=== PATIENT | male | born 1960 | race Caucasian/White ===

== ENCOUNTER 2017-01-29 09:30 | Emergency (ER) | payer OTHER ==
[~2017-01-29] VITALS: Ht 180.3 cm; Wt 81.8 kg
[2017-01-29] MEDS ORDERED: HALOPERIDOL 5 MG INJ IM STA (09:33)
[2017-01-29 09:44] VITALS: Ht 180.3 cm; Wt 81.8 kg
[2017-01-29 09:56] LABS: ADD SCAN DIFF NO
[2017-01-29] MEDS ORDERED: SOD CHLORIDE 0.9% 1,000 ML IV STA (09:56)
[2017-01-29] MEDS ORDERED: LORAZEPAM 2 MG INJ IM ONE (10:00)
[2017-01-29] MEDS ORDERED: DIPHENHYDRAMINE 50 MG INJ IM ONE (10:00)
[2017-01-29 10:05] LABS: BASOPHILS % 0.2 % (0.0-2.0); EOSINOPHILS # 0.2 10^3/ul (0.0-0.5); EOSINOPHILS % 1.4 % (0.0-7.0); HEMATOCRIT 39.9 % (42.0-52.0); HEMOGLOBIN 13.3 g/dl (14.0-18.0); LYMPHOCYTES # 2.4 10^3/ul (0.8-2.9); LYMPHOCYTES % 14.7 % (15.0-51.0); MEAN CORPUSCULAR HGB CONC 33.3 g/dl (32.0-37.0); MEAN PLATELET VOLUME 11.5 fl (7.4-10.4); MONOCYTE # 0.8 10^3/ul (0.3-0.9); MONOCYTES % 5.1 % (0.0-11.0); NEUTROPHIL # 12.5 10^3/ul (1.6-7.5); NEUTROPHILS % 78.2 % (39.0-77.0); PLATELET COUNT 253 10^3/UL (140-415); RED BLOOD COUNT 4.75 10^6/ul (4.70-6.10); RED CELL DISTRIBUTION WIDTH 13.7 % (11.5-14.5)
[2017-01-29 10:11] LABS: ALBUMIN 4.6 g/dl (3.3-4.9)
[2017-01-29 10:12] LABS: CHLORIDE 108 mmol/L (97-110); POTASSIUM 3.3 mmol/L (3.5-5.1); SODIUM 147 mmol/L (135-144)
[2017-01-29 10:13] LABS: INR 1.06; PARTIAL THROMBOPLASTIN TIME 27.4 Sec (25.0-35.0); PROTIME 13.8 Sec (12.2-14.2); PT RATIO 1.1
[2017-01-29 10:14] LABS: ANION GAP 20 (8-16); ASPARTATE AMINO TRANSFERASE 21 IU/L (15-46); BILIRUBIN,INDIRECT 0.4 mg/dl (0-1.1); BILIRUBIN,TOTAL 0.4 mg/dl (0.2-1.3); CARBON DIOXIDE 22 mmol/L (21-31); CREATININE 0.76 mg/dl (0.61-1.24)
[2017-01-29 10:15] LABS: ALANINE AMINOTRANSFERASE 27 IU/L (13-69); ALBUMIN/GLOBULIN RATIO 1.17; ALKALINE PHOSPHATASE 92 IU/L (42-121); BLOOD UREA NITROGEN 26 mg/dl (7-20); CALCIUM 9.7 mg/dl (8.4-10.2); TOTAL PROTEIN 8.5 g/dl (6.1-8.1)
--- NOTE | 2017-01-29 10:15 | ERA ---
ER Documentation Chief Complaint Date/Time DATE: 01/29/17 TIME: 10:11 Chief Complaint BROUGHT IN VIA EMS WITH [employer] ESCORT DUE TO AGITATION (BREANNA MATTHEWS) HPI This is a 56-year-old male with a known history of paranoid schizophrenia, bipolar disorder and multiple personality disorder. The patient indicated he utilize crystal meth prior to arrival and was stating that he was experiencing severe agitation. The patient was experienced and bizarre-like behavior outside his apartment complex building and witnesses phone 911. [employer] arrived and the patient is not under custody. There is no signs of trauma or drug paraphernalia. The patient indicates he has not taken any of his antipsychotic medications for over 2 weeks. He denies any suicidal homicidal thoughts or ideations at this time. He denies any chest pain or pressure that radiates to the neck arm back or jaw. He denies any recent remote blunt or penetrating head chest or abdominal trauma (BREANNA MATTHEWS) ROS All systems reviewed and are negative except as per history of present illness. (BREANNA MATTHEWS) Allergies Allergies: Coded Allergies: No Known Allergies (Verified Allergy, Mild, 01/29/17) PMhx/Soc History of Surgery: No Anesthesia Reaction: No Hx Neurological Disorder: No Hx Respiratory Disorders: No Hx Cardiac Disorders: No Hx Psychiatric Problems: Yes Hx Miscellaneous Medical Probl: Yes (DM) Hx Alcohol Use: Yes Hx Tobacco Use: Yes Smoking Status: Current every day smoker (BREANNA MATTHEWS) Physical Exam Vitals Vital Signs Date Time Temp Pulse Resp B/P Pulse Ox O2 Delivery O2 Flow Rate FiO2 01/29/17 17:58 67 19 132/65 100 Room Air 01/29/17 15:21 75 19 132/74 100 Room Air 01/29/17 12:00 88 19 120/76 100 Room Air 01/29/17 10:00 86 19 117/77 100 Room Air 01/29/17 09:44 98.2 118 18 148/86 98 (JOEL LOCK DO) Physical Exam Constitutional:Well-developed. Disheveled brought in by [employer] and EMS very agitated. HEENT:Normocephalic. Atraumatic.Pupils were 5 mm and reactive to light bilaterally peer moist mucous membranes.No tonsillar exudates. Neck: No nuchal rigidity. No lymphadenopathy. No posterior cervical spine tenderness or step-offs. Respiratory: Not using accessory muscles of respiration.Lungs were clear to auscultation bilaterally. No rhonchi. No rales. No wheezing. Cardiovascular: Regular rate regular rhythm.No murmurs. No rubs were appreciated.S1, S2 normal. Distal pulses are palpable 2+ bilaterally. GI: Abdomen was soft. Nontender. Non Distended. No pulsatile abdominal masses or bruits. No rebound. No guarding. Bowel sounds were present and normal. : Normal light of both testicles. No testicular swelling or tenderness. Patient was straight cathed in order to receive urine Muscle skeletal: Full range of motion of both the upper and lower extremities bilaterally.Normal muscle tone.No assymetrical calf tenderness or swelling. Skin: No petechia, no purpura. No lesions on the palms or the soles of the feet. No maculopapular rash. NEURO: Patient was alert, awake, orientated to person place but not to time. Patient refused to follow verbal commands as he was very agitated experiencing auditory visual tactile hallucinations. He denied any suicidal or homicidal suicidal thoughts or ideation (BREANNA MATTHEWS) Result Diagram: 01/29/17 0945 01/29/17 0945 Results 24 hrs Laboratory Tests Test 01/29/17 09:33 01/29/17 09:45 01/29/17 10:00 Urine Amphetamines Screen POSITIVE Urine Barbiturates Negative Urine Benzodiazepines Screen Negative Urine Cannabinoids Positive Urine Cocaine Screen Negative Urine Opiates Screen Negative Acetaminophen Level < 10.0ug/ml Activated Partial Thromboplast Time 27.4Sec Alanine Aminotransferase (ALT/SGPT) 27IU/L Albumin 4.6g/dl Albumin/Globulin Ratio 1.17 Alkaline Phosphatase 92IU/L Anion Gap 20 Aspartate Amino Transf (AST/SGOT) 21IU/L Basophils # 0.010^3/ul Basophils % 0.2% Blood Urea Nitrogen 26mg/dl Calcium Level 9.7mg/dl Carbon Dioxide Level 22mmol/L Chloride Level 108mmol/L Creatinine 0.76mg/dl Digoxin Level < 0.4ng/ml Direct Bilirubin 0.00mg/dl Eosinophils # 0.210^3/ul Eosinophils % 1.4% Ethyl Alcohol Level 21.0mg/dl Globulin 3.90g/dl Glucose Level 113mg/dl Hematocrit 39.9% Hemoglobin 13.3g/dl INR International Normalized Ratio 1.06 Indirect Bilirubin 0.4mg/dl Lymphocytes # 2.410^3/ul Lymphocytes % 14.7% Mean Corpuscular Hemoglobin 28.0pg Mean Corpuscular Hemoglobin Concent 33.3g/dl Mean Corpuscular Volume 84.0fl Mean Platelet Volume 11.5fl Monocytes # 0.810^3/ul Monocytes % 5.1% Neutrophils # 12.510^3/ul Neutrophils % 78.2% Nucleated Red Blood Cells # 0.010^3/ul Nucleated Red Blood Cells % 0.0/100WBC Platelet Count 86663^3/UL Potassium Level 3.3mmol/L Prothrombin Time 13.8Sec Prothrombin Time Ratio 1.1 Red Blood Count 4.7510^6/ul Red Cell Distribution Width 13.7% Salicylates Level < 1.0mg/dl Sodium Level 147mmol/L Total Bilirubin 0.4mg/dl Total Protein 8.5g/dl White Blood Count 16.010^3/ul Urine Bilirubin NEGATIVE Urine Clarity CLEAR Urine Color LT. YELLOW Urine Glucose NEGATIVE% Urine Hemoglobin NEGATIVE Urine Ketones TRACE Urine Leukocyte Esterase NEGATIVE Urine Nitrite NEGATIVE Urine Specific [place] >=1.030 Urine Total Protein NEGATIVE Urine Urobilinogen 0.2 E.U./dL Urine pH 5.5 Current Medications Medications (Trade) Dose Ordered Sig/Rk Route PRN Reason Start Time Stop Time Status Last Admin Dose Admin Haloperidol (Haldol) 5 mg ONCE STAT IM 01/29/17 09:33 01/29/17 09:35 DC 01/29/17 09:41 Diphenhydramine HCl (Benadryl) 50 mg ONCE ONCE IM 01/29/17 10:00 01/29/17 10:01 DC 01/29/17 09:40 Lorazepam 2 mg 2 mg ONCE ONCE IM 01/29/17 10:00 01/29/17 10:01 DC 01/29/17 09:41 Sodium Chloride (NS) 1,000 ml @ 1,000 mls/hr Q1H STAT IV 01/29/17 09:56 01/29/17 10:55 DC 01/29/17 10:01 Potassium Chloride (Klor-Con 10) 10 meq ONCE ONCE PO 01/29/17 10:30 01/29/17 10:53 DC 01/29/17 18:59 (JOEL LOCK DO) Procedures/MDM This patient presented to the emergency department with acute psychosis and my differential diagnosis included but was not limited to ruling out life threatening causes of acute psychosis such as Wernickes encephalopathy, hypoxia , hypoglycemia, hypertensive encephalopathy, intracerebral hemorrhage, meningitis, poisoning. After my evaluation and workup on the patient I was able to exclude medical and reversible causes of the patients psychosis. It was my clinical impression the patients symptoms were an exacerbation of his psychiatric disorder; therefore, the patient was medically cleared by myself at this time for psychiatric evaluation and possible transfer. Please note that the patient has multiple personality disorder and some times he prefers to be called Veda and sometimes refers to himself as Colton however the patient is a genetic male. The patient had leukocytosis but no signs of a left shift and I did feel this was likely a result of an acute stress reaction and leukemoid reaction from the patient's amphetamine abuse. The patient did become severely agitated during medical assessment. Reassurance and verbal de-escalation were unsuccessful in calming the patient down. The agitation was impeding medical evaluation and treatment, with potential for the patient to harm themselves or others; therefore, pharmacological sedation was required. The patient received IM Haldol Ativan and Benadryl. The patient will be signed out to the oncoming ED physician is is currently awaiting for a PET team evaluation due to the patient's acute psychosis. The patient never complained of any suicidal homicidal thoughts or ideations (BREANNA MATTHEWS) This patient has been in the emergency room for many hours was evaluated by tele -psychiatry, Dr. alston. Patient now states the she is feeling much better and according to the tele-psychiatrist this was likely a psychotic episode brought on by the methamphetamines which have now cleared her system enough that she is clinically sober. I spoke to the patient she does state that she is no longer wanting to hurt herself or others. Psychiatrist recommends continuing her home medications. Patient says that she does not need any refills currently. Instructed to see her psychiatrist tomorrow by calling the first thing in the morning. She is to return to the emergency room if she has any other suicidal thoughts. (JOEL LOCK DO) Departure Diagnosis: Primary Impression: Acute psychosis Condition: Serious BREANNA MATTHEWS Jan 29, 2017 10:15 JOEL LOCK DO Jan 29, 2017 22:48
[2017-01-29 10:17] LABS: ACETAMINOPHEN < 10.0 ug/ml (10.0-30.0); GLUCOSE 113 mg/dl (70-220); SALICYLATE < 1.0 mg/dl (5.0-30.0)
[2017-01-29] MEDS ORDERED: POTASSIUM CHLORIDE (SR) 10 MEQ TAB PO ONE (10:30)
[2017-01-29 10:31] LABS: ADD UMIC NO; URINE BILIRUBIN (Dip) NEGATIVE (NEGATIVE); URINE BLOOD (Dip) NEGATIVE (NEGATIVE); URINE COLOR LT. YELLOW (YELLOW); URINE GLUCOSE (Dip) NEGATIVE (NEGATIVE); URINE KETONES (Dip) TRACE (NEGATIVE); URINE LEUKOCYTE ESTERASE (Dip) NEGATIVE (NEGATIVE); URINE NITRITE (Dip) NEGATIVE (NEGATIVE); URINE TOTAL PROTEIN (Dip) NEGATIVE (NEGATIVE); URINE UROBILINOGEN (Dip) 0.2 E.U./dL (0.1-1.0)
[2017-01-29 15:20] LABS: CANNABINOIDS Positive (NEGATIVE)
[2017-01-29 15:35] LABS: BARBITURATES Negative (NEGATIVE); BENZODIAZEPINES Negative (NEGATIVE); COCAINE Negative (NEGATIVE); OPIATES Negative (NEGATIVE)
--- NOTE | 2017-01-29 18:57 | PSY ---
Date/Time of Note Date/Time of Note DATE: 01/29/17 TIME: 18:50 Psychiatric Subjective Eval Consent Pt consented to telemedicine: Yes Subjective Evaluation Patient location: emergency Chief Complaint: BROUGHT IN VIA EMS WITH [employer] ESCORT DUE TO AGITATION Reason for consult: Agitation History of present illness Pt is a 56 year old transgendered male to female who was brought in by police for agitation. Per report, patient had been acting bizarrely outside her apartment complex. A neighbor called 911 and police brought her to the ER. Patient was agitated and had to be given haldol injections. She then rested and is calmer now. Patient states she was using meth and weed. She reports that she is feeling better now. She denies suicidal ideation and homicidal ideation. She denies acute hallucinations and delusions. She reports no particular pre-drug use issues. She does take seroquel 300mg and wellbutrin (dose unknown). She would like to be discharged to home when medically cleared. Past psychiatric history Spent [id number] in [facility]. Attempted murder to give her sister a heart? ( pt mumbled on this part of her story). Hospitalization: Suicidal Attempt(s) (40 suicide attempts) Family History Mental illness runs in the family Medical history Problems Medical Problems: (1) Acute psychosis Status: Acute Allergies: Coded Allergies: No Known Allergies (Verified Allergy, Mild, 01/29/17) Substance Abuse Substance abuse history: Yes Social History Marital status: single Level of education: N/A DPA/Conservatorship: No Occupation/Long-Term: N/A Psychiatric Objective Eval Physical Examination: Physical Examination: Not Applicable Mental Status Examination: Appearance: Groomed Eye Contact: Good Psychomotor Activity: Normal Behavior: Cooperative Speech: Clear AFFECT: Appropriate Mood: Appropriate/Full Though Process: Linear Thought Content: Normal Suicidal: No Homicidal: No Orientation: x4 Cognition: Alert Insight: Mild Judgement: Mild Attention Span: Intact Laboratory Results Laboratory Tests Test 01/29/17 09:33 01/29/17 09:45 01/29/17 10:00 Urine Amphetamines Screen POSITIVE Urine Barbiturates Negative Urine Benzodiazepines Screen Negative Urine Cannabinoids Positive Urine Cocaine Screen Negative Urine Opiates Screen Negative Acetaminophen Level < 10.0ug/ml Activated Partial Thromboplast Time 27.4Sec Alanine Aminotransferase (ALT/SGPT) 27IU/L Albumin 4.6g/dl Albumin/Globulin Ratio 1.17 Alkaline Phosphatase 92IU/L Anion Gap 20 Aspartate Amino Transf (AST/SGOT) 21IU/L Basophils # 0.010^3/ul Basophils % 0.2% Blood Urea Nitrogen 26mg/dl Calcium Level 9.7mg/dl Carbon Dioxide Level 22mmol/L Chloride Level 108mmol/L Creatinine 0.76mg/dl Digoxin Level < 0.4ng/ml Direct Bilirubin 0.00mg/dl Eosinophils # 0.210^3/ul Eosinophils % 1.4% Ethyl Alcohol Level 21.0mg/dl Globulin 3.90g/dl Glucose Level 113mg/dl Hematocrit 39.9% Hemoglobin 13.3g/dl INR International Normalized Ratio 1.06 Indirect Bilirubin 0.4mg/dl Lymphocytes # 2.410^3/ul Lymphocytes % 14.7% Mean Corpuscular Hemoglobin 28.0pg Mean Corpuscular Hemoglobin Concent 33.3g/dl Mean Corpuscular Volume 84.0fl Mean Platelet Volume 11.5fl Monocytes # 0.810^3/ul Monocytes % 5.1% Neutrophils # 12.510^3/ul Neutrophils % 78.2% Nucleated Red Blood Cells # 0.010^3/ul Nucleated Red Blood Cells % 0.0/100WBC Platelet Count 82478^3/UL Potassium Level 3.3mmol/L Prothrombin Time 13.8Sec Prothrombin Time Ratio 1.1 Red Blood Count 4.7510^6/ul Red Cell Distribution Width 13.7% Salicylates Level < 1.0mg/dl Sodium Level 147mmol/L Total Bilirubin 0.4mg/dl Total Protein 8.5g/dl White Blood Count 16.010^3/ul Urine Bilirubin NEGATIVE Urine Clarity CLEAR Urine Color LT. YELLOW Urine Glucose NEGATIVE% Urine Hemoglobin NEGATIVE Urine Ketones TRACE Urine Leukocyte Esterase NEGATIVE Urine Nitrite NEGATIVE Urine Specific [place] >=1.030 Urine Total Protein NEGATIVE Urine Urobilinogen 0.2 E.U./dL Urine pH 5.5 Assessment and Plan Assessment/Diagnosis [place] I: Unspecified Psychotic Disorder, Stimulant Use Disorder Recommendation/Plan Medication Management Recommend patient continue outpatient psychiatric medications. Has outpatient psychiatrist. Psychotherapy N/A Pt. Caregiver/Family Education N/A Follow-up/Disposition Patient appears stable for discharge to self. She appears to have been intoxicated with meth and cannabis. She appears much calmer now. She denies suicidal and homicidal ideation. She has a place to return to when discharged and is able to provide a plan for her own self care. She should follow up with her outpatient provider and continue her outpatient medications. [id number] Recommendation: Jazzy Sheets JOSEFINA THOMAS Jan 29, 2017 18:57
[2017-01-29 22:55] VITALS: BP 115/68; PULSE 68; RESP 20; TEMP 98.6
== END 2017-01-29 22:56 | disposition home or self-care (01) ==
LOC: E/R 09:30 → EDSEX 09:30 → E/R 22:56
DX: F23 Brief psychotic disorder (principal); F17.210 Nicotine dependence, cigarettes, uncomplicated; E11.9 Type 2 diabetes mellitus without complications
CPT/HCPCS: 36415; 80053; 80162; 80306; 80307; 81003; 85025; 85610; 85730; 96372; J1200; J1630; J2060; J7030; Z7502; Z7610